=== PATIENT | male | born 1995 | race Caucasian/White ===

== ENCOUNTER 2025-05-10 22:37 | Emergency (ER) | payer SELFPAY ==
[2025-05-11] MEDS ORDERED: Bacitracin 1 PK ONE (00:26)
[2025-05-11] MEDS ORDERED: Ketorolac Tromethamine 30 MG (1 mL) VIAL ONE (00:53)
[2025-05-11] MEDS ORDERED: HYDROcodone/Acetaminophen 10/325 mg Tablet ONE (00:54)
== END 2025-05-11 01:06 | disposition home or self-care (01) ==
LOC: ERS 22:37
DX: S63.502A Unspecified sprain of left wrist, initial encounter (principal); V00.131A Fall from skateboard, initial encounter
CPT/HCPCS: 96372; 99283; J1885